=== PATIENT | female | born 1980 | race Caucasian/White ===

== ENCOUNTER 2021-08-17 11:27 | Emergency (ER) | payer OTHER ==
[~2021-08-17] VITALS: Ht 165.1 cm; Wt 72.8 kg
== END 2021-08-17 13:27 | disposition home or self-care (01) ==
LOC: ED 11:27
DX: S52.602A Unspecified fracture of lower end of left ulna, initial encounter for closed fracture (principal); W22.8XXA Striking against or struck by other objects, initial encounter; J45.909 Unspecified asthma, uncomplicated
CPT/HCPCS: 73110; 99283-25